=== PATIENT | female | born 1940 ===

== ENCOUNTER 2017-08-20 15:11 | Inpatient (IN) | payer MEDICARE, MEDICAID ==
--- NOTE | 2017-08-20 16:07 | ED PDOC ---
HPI: Trauma/Fall - HPI Chief Complaint (Provider): Weakness History Per: Patient History/Exam Limitations: language barrier Onset/Duration Of Symptoms: Hrs Injury Occurred (Timing): Hours Ago: (1) Description Of Injury (Context): generalized weakness Severity: Moderate Additional History Per: Family Additional Complaint(s): Ms. Chelsy Noble is a pleasant 76 yo lady with PMHx of HTN, reflux, alzheimer's and history of L knee replacement, presents to the ED with generalized weakness and mild lightheadedness. She lives with her daughter who shares that approximately 1 hour ago, she found her mother on the side of her bed, knees bent. She had urinary incontinence. She was last observed to be ambulatory at 03:00 AM. Pt ambulates with assistance of a walker. Currently, she is alert and able to respond to our questions in ukrainian. Denies: SOB/N/V/ constipation/diarrhea PCP: Dr. Kennedy PMHx: HTN, acid reflux, Alzheimer (dx 1 year); PSHx: L knee replacement; Hysterectomy FamHx: Daughter with DM SocHx: Denies: smoking, etoh, illicit drugs Allergies: Iodinated contrast Medications: Brought in a bag but daughters state that she doesnt take all of them: Diclofenac, omeprazole, baclofen, Acetaminophen, lisinopril-HCTZ, tramadol , clopidogrel, folic acid, cyclobenzabrine, memantine, amitiza - Fall Fall:Prior To Injury: Lost Balance <Bryon Martinez - Last Filed: 08/20/17 17:47> - HPI History/Exam Limitations: no limitations Injury Occurred (Timing): Hours Ago: (3am) Additional Complaint(s): Pt. last found well at 3am. Since then developed weakness all over at some time. No numbness, tingles. No chest pain, dyspnea. No headaches, dizziness. No chest pain. Had some incontinence today. <Pillo Sweet - Last Filed: 08/20/17 17:57> - HPI Time Seen by Provider: 08/20/17 15:31 Chief Complaint (Nursing): Trauma Past Medical History Vital Signs: Last Vital Signs Temp 99.5 F 08/20/17 15:16 Pulse 114 H 08/20/17 15:16 Resp 20 08/20/17 15:16 BP 108/66 08/20/17 15:16 Pulse Ox 100 08/20/17 15:16 - Medical History PMH: Alzheimer's Disease, Arthritis, GERD, HTN, Osteoporosis, Rheumatoid Arthritis - Surgical History Surgical History: Appendectomy Other surgeries: Hysterectomy, L knee replaced - Family History Family History: States: Diabetes (daughter) - Living Arrangements Living Arrangements: With Family - Social History Current smoker - smoking cessation education provided: No Alcohol: None Drugs: Denies <MichelleSlater Last Filed: 08/20/17 17:47> Reviewed: Nursing Documentation, Vital Signs Vital Signs: Last Vital Signs Temp 99.5 F 08/20/17 15:16 Pulse 114 H 08/20/17 15:16 Resp 20 08/20/17 15:16 BP 108/66 08/20/17 15:16 Pulse Ox 100 08/20/17 17:48 <Pillo Sweet Last Filed: 08/20/17 17:57> - Home Medications Home Medications: Ambulatory Orders Medication Instructions Recorded Ibuprofen [Motrin] 600 mg PO TID 7 Days tab 04/22/16 Naproxen 500 mg PO BID #10 tab 12/18/16 Diclofenac Sodium 1 tab PO DAILY 05/14/17 Gabapentin [Neurontin] 1 tab PO DAILY 05/14/17 Naproxen [Naprosyn] 500 mg PO BID PRN #14 tablet 05/14/17 traMADol [Ultram] 50 mg PO BID 05/14/17 - Allergies Allergies/Adverse Reactions: Allergies Allergy/AdvReac Type Severity Reaction Status Date / Time Iodinated Contrast- Oral and Allergy RASH Verified 04/22/16 14:42 IV Dye [Iodinated Contrast Media - IV Dye] iodine AdvReac SWELLING Verified 05/14/17 13:41 Review of Systems Constitutional: Positive for: Weakness Cardiovascular: Negative for: Chest Pain Respiratory: Positive for: Cough. Negative for: Shortness of Breath Gastrointestinal: Negative for: Nausea, Vomiting, Diarrhea, Constipation Musculoskeletal: Positive for: Other (generalized) Neurological: Positive for: Weakness. Negative for: Confusion, Altered Mental Status <Mingo Martinezang Last Filed: 08/20/17 17:47> Constitutional: Positive for: Weakness <Pillo Sweet Last Filed: 08/20/17 17:57> Physical Exam - Reviewed Vital Signs Reviewed: Yes - Physical Exam Appears: Positive for: Uncomfortable Skin: Positive for: Warm, Dry Eye Exam: Positive for: EOMI Respiratory: Positive for: Normal Breath Sounds Gastrointestinal/Abdominal: Positive for: Bowel Sounds, Soft. Negative for: Tenderness Neurologic/Psych: Positive for: Alert <Bryon Martinez - Last Filed: 08/20/17 17:47> - Physical Exam Appears: Positive for: Non-toxic, No Acute Distress Head Exam: Positive for: ATRAUMATIC, NORMAL INSPECTION, NORMOCEPHALIC Skin: Positive for: Normal Color, Warm, DRY Eye Exam: Positive for: EOMI, Normal appearance, PERRL ENT: Positive for: Normal ENT Inspection Cardiovascular/Chest: Positive for: Tachycardia (mild) Respiratory: Positive for: CNT, Normal Breath Sounds Back: Positive for: Normal Inspection. Negative for: L CVA Tenderness, R CVA Tenderness Neurologic/Psych: Positive for: Alert, Oriented. Negative for: Motor/Sensory Deficits <Pillo Sweet - Last Filed: 08/20/17 17:57> - Laboratory Results Result Diagrams: 08/20/17 16:23 08/20/17 16:23 - ECG O2 Sat by Pulse Oximetry: 100 <Bryon Martinez - Last Filed: 08/20/17 17:47> - Laboratory Results Result Diagrams: 08/20/17 16:23 08/20/17 16:23 Interpretation Of Abn Labs: 19.1 wbc; elevated bun/cr - ECG ECG: Positive for: Interpreted By Me, Viewed By Me ECG Rhythm: Positive for: Sinus Rhythm, Nonspecific Changes Pulse Ox Interpretation: Normal - Radiology X-Ray: Read By Radiologist X-Ray Interpretation: No Acute Disease - CT Scan/US head Other Rad Studies (CT/US): Read By Radiologist Other Rad Interpretation: no acute - Progress ED Course And Treament: 1754: Stable. Alert. Spoke with Dr. Taveras. Will admit tele. Will give further orders when pt. reaches floor. Likely uti causing symptoms. Meets sepsis criteria. Lactate normal, not severe sepsis. <Pillo Sweet - Last Filed: 08/20/17 17:57> Disposition Discussed With : Pillo Sweet Comment: Sepsis: UTI; meets criteria: Tachycardia, elevated WBC; Urine dip with leukocytes. Admit to medicine - Disposition Disposition Time: 17:45 <Bryon Martinez - Last Filed: 08/20/17 17:47> - Patient ED Disposition Is Patient to be Admitted: Yes Counseled Patient/Family Regarding: Studies Performed, Diagnosis - Pt Status Changed To: Hospital Disposition Of: Inpatient - Admit Certification Admit to Inpatient:: After my assessment, the patient will require hospitalization for at least two midnights. This is because of the severity of symptoms shown, intensity of services needed, and/or the medical risk in this patient being treated as an outpatient. - POA Present On Arrival: Falls Or Trauma (? at home today) <Pillo Sweet - Last Filed: 08/20/17 17:57> - Clinical Impression Clinical Impression: Sepsis due to urinary tract infection, Renal insufficiency, Dehydration - Disposition Condition: FAIR
[2017-08-20 16:18] LABS: VENOUS BLOOD GAS PCO2 43 mmHg (40-60); VENOUS BLOOD PH 7.35 (7.32-7.43)
[2017-08-20 16:32] LABS: BASO % 0.1 % (0.0-2.0); EOS # 0.1 K/uL (0.0-0.7); EOS % 0.3 % (0.0-4.0); LYMPH # 1.1 K/uL (1.0-4.3); LYMPH % 5.8 % (20.0-40.0); MEAN CELL VOLUME 95.7 fl (81.0-99.0); MEAN CORPUSCULAR HEMOGLOBIN 31.5 pg (27.0-31.0); MEAN CORPUSCULAR HGB CONC 32.9 g/dL (33.0-37.0); MONO % 5.3 % (0.0-10.0); NEUT # 16.9 K/uL (1.8-7.0); NEUT % 88.5 % (50.0-75.0); PLATELET COUNT 210 K/uL (130-400); RED CELL DISTRIBUTION WIDTH 13.9 % (11.5-14.5); WHITE BLOOD COUNT 19.1 K/uL (4.8-10.8)
[2017-08-20] MEDS: Sodium Chloride 0.9% 1,000 ML IV SCH (16:35)
[2017-08-20 16:43] LABS: ALB/GLOB RATIO 1.3 (1.0-2.1); BILIRUBIN,TOTAL 0.9 mg/dl (0.2-1.3); CALCIUM 10.5 mg/dL (8.4-10.2); MAGNESIUM 1.8 MG/DL (1.6-2.3); PHOSPHOROUS 3.1 mg/dl (2.5-4.5); TOTAL PROTEIN 7.5 G/DL (6.3-8.2)
[2017-08-20 16:53] LABS: PARTIAL THROMBOPLASTIN TIME 29.1 Seconds (25.6-37.1)
[2017-08-20 16:54] LABS: TROPONIN I 0.012 ng/mL (0.00-0.120)
--- NOTE | 2017-08-20 16:59 | CT ---
PROCEDURE: CT HEAD WITHOUT CONTRAST. HISTORY: Headache. No antecedent history of trauma provided. COMPARISON: 12/18/2016. TECHNIQUE: Axial computed tomography images were obtained through the head/brain without intravenous contrast. Radiation dose: Total exam DLP = 1007.92 mGy-cm. This CT exam was performed using one or more of the following dose reduction techniques: Automated exposure control, adjustment of the mA and/or kV according to patient size, and/or use of iterative reconstruction technique. FINDINGS: HEMORRHAGE: No intracranial hemorrhage. BRAIN: No mass effect or edema. No atrophy or chronic microvascular ischemic changes. VENTRICLES: Unremarkable. No hydrocephalus. CALVARIUM: Unremarkable. PARANASAL SINUSES: Unremarkable as visualized. No significant inflammatory changes. MASTOID AIR CELLS: Unremarkable as visualized. No inflammatory changes. OTHER FINDINGS: None. IMPRESSION: No acute intracranial abnormalities. No significant findings to account for the clinical presentation. No significant interval change compared to the prior examination(s).
--- NOTE | 2017-08-20 17:06 | RAD ---
HISTORY: Sepsis Patient COMPARISON: 12/18/2016 FINDINGS: LUNGS: No active pulmonary disease. PLEURA: No significant pleural effusion identified, no pneumothorax apparent. CARDIOVASCULAR: No radiographic findings to suggest acute or significant cardiovascular disease. OSSEOUS STRUCTURES: No significant abnormalities. VISUALIZED UPPER ABDOMEN: Normal. OTHER FINDINGS: None. IMPRESSION: No active disease. No significant interval change compared to the prior examination(s). Please note: No preliminary interpretation of this examination rendered by emergency department personnel (Physician and/or PA declined to provide preliminary report of their findings/ observations).
[2017-08-20] MEDS ORDERED: Ciprofloxacin 400mg/200ml D5W 400 MG/200 ML BAG IV STA (17:42)
[2017-08-20 18:17] LABS: RBC URINE 9 /hpf (0-3); URINE BILIRUBIN NEGATIVE (NEGATIVE); URINE BLOOD SMALL (NEGATIVE); URINE COLOR YELLOW (YELLOW); URINE GLUCOSE (UA) NEG (Normal); URINE KETONE NEGATIVE (NEGATIVE); URINE LEUKOCYTE ESTERASE NEG Leu/uL (Negative); URINE PROTEIN NEGATIVE (NEGATIVE); URINE UROBILINOGEN 0.2-1.0 mg/dL (0.2-1.0); WBC URINE 1 /hpf (0-5)
[2017-08-20 18:23] LABS: EOSINOPHIL 2 % (0-7); NEUTROPHIL 84 % (42-75); TOTAL CELLS COUNTED 100
[2017-08-20 18:27] LABS: URINE BACTERIA OCC (<OCC)
[2017-08-20] MEDS ORDERED: Ciprofloxacin 400mg/200ml D5W 400 MG/200 ML BAG IVPB ONE (19:10)
[2017-08-20] MEDS ORDERED: Acetaminophen-Codeine 300/30 mg Tab PO PRN (22:19)
[2017-08-20] MEDS: Dextrose 5%/0.9% NS 1,000 ML IV SCH (22:40)
[2017-08-21] MEDS ORDERED: ALENDRONATE 70 MG TAB PO SCH (07:30)
--- NOTE | 2017-08-21 11:19 | CARD ---
APPROVED REPORT EKG Measurement Heart [id number] <Conclusion> Sinus tachycardia with premature atrial complexes Nonspecific T wave abnormality Abnormal ECG
[2017-08-21] MEDS: Multivitamin With Minerals Tab PO SCH (11:25)
[2017-08-21] MEDS: Dextrose 5%/0.9% NS 1,000 ML IV SCH (11:27)
[2017-08-21] MEDS: Pantoprazole 40 mg EC Tab PO SCH (11:29)
[2017-08-21] MEDS: Ciprofloxacin 400mg/200ml D5W 400 MG/200 ML BAG IVPB SCH ×2 (11:31→20:58)
--- NOTE | 2017-08-21 18:38 | CP.PCM.CON ---
History of Present Illness - History of Present Illness History of Present Illness: 76 year old female with a history of alzheimers disease, arthritis, HTN, admitted with weakness and confusion, being treated for UTI, with leukocytosis and anemia. The patient is unaware of having blood problems in the past. She denies abnormal bleeding and bruising. She notes to feeling better since starting antibiotics. She has some right sided soreness in her arms and legs. Her daughter reports her mental status is improved. Past medical history: Alzheimers disease, arthritis, HTN Past surgical history: Knee replacement Family history: Denies hematologic and oncologic problems Social history: Denies tobacco, alcohol, and illicit drug use. Allergies: Oral and IV contrast Review of systems: All remaining review of systems including HEENT, cardiovascular, respiratory, gastrointestinal, genitourinary, musculoskeletal, dermatologic, neurologic, and psychiatric are negative unless mentioned in the HPI. Past Patient History - Past Medical History & Family History Past Medical History?: Yes - Past Social History Smoking Status: Never Smoked - CARDIAC Hx Cardiac Disorders: Yes Hx Hypertension: Yes - PULMONARY Hx Respiratory Disorders: No - NEUROLOGICAL Hx Neurological Disorder: Yes Hx Alzheimer's Disease: Yes - HEENT Hx HEENT Problems: No - RENAL Hx Chronic Kidney Disease: No - ENDOCRINE/METABOLIC Hx Endocrine Disorders: No - HEMATOLOGICAL/ONCOLOGICAL Hx Blood Disorders: No - INTEGUMENTARY Hx Dermatological Problems: No - MUSCULOSKELETAL/RHEUMATOLOGICAL Hx Musculoskeletal Disorders: Yes Hx Arthritis: Yes Hx Falls: Yes Hx Osteoporosis: Yes Hx Rheumatoid Arthritis: Yes - GASTROINTESTINAL Hx Gastrointestinal Disorders: No - GENITOURINARY/GYNECOLOGICAL Hx Genitourinary Disorders: No - PSYCHIATRIC Hx Psychophysiologic Disorder: No Hx Substance Use: No - SURGICAL HISTORY Hx Surgeries: Yes Hx Appendectomy: Yes - ANESTHESIA Hx Anesthesia: Yes Has any member of the family had a problem w/ anesthesia?: No Meds Allergies/Adverse Reactions: Allergies Allergy/AdvReac Type Severity Reaction Status Date / Time Iodinated Contrast- Oral and Allergy RASH Verified 04/22/16 14:42 IV Dye [Iodinated Contrast Media - IV Dye] iodine AdvReac SWELLING Verified 05/14/17 13:41 - Medications Medications: Current Medications Acetaminophen/Codeine Phosphate (Tylenol/Codeine 300 Mg/30 Mg) 1 tab PO BID PRN PRN Reason: Pain, severe (8-10) Alendronate Sodium (Fosamax) 70 mg PO QWK NATTY Baclofen (Lioresal) 10 mg PO BID [facility] Last Admin: 08/21/17 18:13 Dose: 10 mg Cholecalciferol (Vitamin D) 1,000 iu PO DAILY [facility] Last Admin: 08/21/17 11:26 Dose: 1,000 iu Clopidogrel Bisulfate (Plavix) 75 mg PO DAILY [facility] Last Admin: 08/21/17 11:25 Dose: 75 mg Dicyclomine HCl (Bentyl) 10 mg PO TID PRN PRN Reason: abdominal cramps/pain Folic Acid (Folic Acid) 1 mg PO DAILY [facility] Last Admin: 08/21/17 11:26 Dose: 1 mg Gabapentin (Neurontin) 300 mg PO TID [facility] Last Admin: 08/21/17 18:12 Dose: 300 mg Home Med (Diclofenac Sodium [Voltaren]) 75 mg PO BID [facility] Home Med (Valacyclovir [Valtrex]) 1 gm PO DAILY [facility] Sodium Chloride (Sodium Chloride 0.9%) 1,000 mls @ 250 mls/hr IV .Q4H [facility] Last Admin: 08/20/17 16:35 Dose: 250 mls/hr Dextrose/Sodium Chloride (Dextrose 5%/0.9% Ns 1000 Ml) 1,000 mls @ 80 mls/hr IV [id number] [facility] Stop: 08/21/17 22:25 Last Admin: 08/21/17 11:27 Dose: 80 mls/hr Ciprofloxacin (Cipro 400mg/200ml Dsw) 400 mg in 200 mls @ 200 mls/hr IVPB Q12 NATTY PRN Reason: Protocol Last Admin: 08/21/17 11:31 Dose: 200 mls/hr Memantine (Namenda) 10 mg PO DAILY [facility] Last Admin: 08/21/17 11:26 Dose: 10 mg Multivitamins/Minerals (Therapeutic-M Tab) 1 tab PO DAILY [facility] Last Admin: 08/21/17 11:25 Dose: 1 tab Pantoprazole Sodium (Protonix Ec Tab) 40 mg PO DAILY [facility] Last Admin: 08/21/17 11:29 Dose: 40 mg Physical Exam - Head Exam Head Exam: ATRAUMATIC - Eye Exam Eye Exam: Normal appearance - ENT Exam ENT Exam: Mucous Membranes Dry - Respiratory Exam Respiratory Exam: NORMAL BREATHING PATTERN - Cardiovascular Exam Cardiovascular Exam: +S1, +S2 - GI/Abdominal Exam GI & Abdominal Exam: Normal Bowel Sounds - Extremities Exam Extremities exam: Positive for: normal inspection - Neurological Exam Neurological exam: Oriented x3 - Psychiatric Exam Psychiatric exam: Normal Affect, Normal Mood - Skin Skin Exam: Warm Results - Vital Signs Recent Vital Signs: Last Vital Signs Temp 98.4 F 08/21/17 15:51 Pulse 71 08/21/17 15:51 Resp 17 08/21/17 15:51 BP 121/86 08/21/17 15:51 Pulse Ox 97 08/21/17 15:51 - Labs Result Diagrams: 08/20/17 16:23 08/20/17 16:23 Labs: Laboratory Results - last 24 hr 08/20/17 15:32 POC Glucose (mg/dL) 159 H Assessment & Plan (1) Leukocytosis Assessment and Plan: likely related to UTI will monitor during antibiotic treatment Status: Acute (2) Anemia Assessment and Plan: mild will check ferritin, retic count, b12, folate, FOBT to further characterize Thank you for this interesting consult. Status: Acute
[2017-08-21] MEDS: Lidocaine 5% Patch TD SCH (20:59)
--- NOTE | 2017-08-22 00:14 | CP.PCM.HP ---
History of Present Illness - History of Present Illness History of Present Illness: This is a 76 y/o female admitted for increasing body weakness and fall at home. She complained of a lot of joint pains after she was found by family member by the bedside. She was noted to have pain and swelling of the right elbow and noted pain on the right hip. Further exam showed UTI and dehydration. Sh ehas a hx of OA multiple sites, HTN and dementia. Past Patient History - Past Medical History & Family History Past Medical History?: Yes - Past Social History Smoking Status: Never Smoked - CARDIAC Hx Cardiac Disorders: Yes Hx Hypertension: Yes - PULMONARY Hx Respiratory Disorders: No - NEUROLOGICAL Hx Neurological Disorder: Yes Hx Alzheimer's Disease: Yes - HEENT Hx HEENT Problems: No - RENAL Hx Chronic Kidney Disease: No - ENDOCRINE/METABOLIC Hx Endocrine Disorders: No - HEMATOLOGICAL/ONCOLOGICAL Hx Blood Disorders: No - INTEGUMENTARY Hx Dermatological Problems: No - MUSCULOSKELETAL/RHEUMATOLOGICAL Hx Musculoskeletal Disorders: Yes Hx Arthritis: Yes Hx Falls: Yes Hx Osteoporosis: Yes Hx Rheumatoid Arthritis: Yes - GASTROINTESTINAL Hx Gastrointestinal Disorders: No - GENITOURINARY/GYNECOLOGICAL Hx Genitourinary Disorders: No - PSYCHIATRIC Hx Psychophysiologic Disorder: No Hx Substance Use: No - SURGICAL HISTORY Hx Surgeries: Yes Hx Appendectomy: Yes - ANESTHESIA Hx Anesthesia: Yes Has any member of the family had a problem w/ anesthesia?: No Meds Home Medications: Home Medication List Medication Instructions Recorded Confirmed Type Ciprofloxacin Lactate 400 mg IV Q12 #10 vial 08/23/17 Rx [Ciprofloxacin] Allergies/Adverse Reactions: Allergies Allergy/AdvReac Type Severity Reaction Status Date / Time Iodinated Contrast- Oral and Allergy RASH Verified 04/22/16 14:42 IV Dye [Iodinated Contrast Media - IV Dye] iodine AdvReac SWELLING Verified 05/14/17 13:41 Results - Vital Signs Recent Vital Signs: Last Vital Signs Temp 98.7 F 08/21/17 20:11 Pulse 88 08/21/17 20:11 Resp 16 08/21/17 20:11 BP 137/73 08/21/17 20:11 Pulse Ox 97 08/21/17 20:11 - Labs Result Diagrams: 08/22/17 06:00 08/22/17 06:00 Labs: Laboratory Results - last 24 hr 08/20/17 15:32 POC Glucose (mg/dL) 159 H
[2017-08-22 07:55] LABS: HEMATOCRIT 29.1 % (34.0-47.0); MEAN CELL VOLUME 96.6 fl (81.0-99.0); MEAN CORPUSCULAR HEMOGLOBIN 31.6 pg (27.0-31.0); MEAN CORPUSCULAR HGB CONC 32.7 g/dL (33.0-37.0); RED CELL DISTRIBUTION WIDTH 13.8 % (11.5-14.5); WHITE BLOOD COUNT 9.3 K/uL (4.8-10.8)
[2017-08-22 07:56] LABS: ALKALINE PHOSPHATASE 62 U/L (38-126); ALT/SGPT 25 U/L (9-52); AST/SGOT 23 U/L (14-36); BILIRUBIN,TOTAL 0.2 mg/dl (0.2-1.3); BLOOD UREA NITROGEN 23 mg/dl (7-17); CALCIUM 9.5 mg/dL (8.4-10.2); CARBON DIOXIDE 25 mmol/L (22-30); CHLORIDE 116 mmol/L (98-107); GFR AFRICAN-AMERICAN 53; GLUCOSE,RANDOM 89 mg/dL (65-105); POTASSIUM 3.9 MMOL/L (3.6-5.0); SODIUM 147 mmol/l (132-148); TOTAL PROTEIN 6.2 G/DL (6.3-8.2)
[2017-08-22] MEDS: Sodium Chloride 0.9% 1,000 ML IV SCH ×4 (09:17→20:46)
[2017-08-22] MEDS: Ciprofloxacin 400mg/200ml D5W 400 MG/200 ML BAG IVPB SCH ×2 (09:17→20:47)
[2017-08-22] MEDS: Lidocaine 5% Patch TD SCH (09:18)
[2017-08-22] MEDS: Pantoprazole 40 mg EC Tab PO SCH (09:20)
[2017-08-22] MEDS: Multivitamin With Minerals Tab PO SCH (09:20)
[2017-08-22 17:35] LABS: FOLATE > 20.0 ng/mL
[2017-08-23] MEDS: Sodium Chloride 0.9% 1,000 ML IV SCH ×5 (00:08→16:50)
[2017-08-23 08:27] VITALS: RESP 20
[2017-08-23] MEDS: Ciprofloxacin 400mg/200ml D5W 400 MG/200 ML BAG IVPB SCH (09:37)
[2017-08-23] MEDS: Lidocaine 5% Patch TD SCH (09:42)
[2017-08-23] MEDS: Pantoprazole 40 mg EC Tab PO SCH (09:44)
[2017-08-23] MEDS: Multivitamin With Minerals Tab PO SCH (09:44)
[2017-08-23 11:45] VITALS: BMI 31.6
--- NOTE | 2017-08-23 14:36 | RAD ---
PROCEDURE: Radiographs of the Right Shoulder HISTORY: Pain. No history of recent/ related trauma provided COMPARISON: No prior. FINDINGS: BONES: Normal. No fracture. JOINTS: Mean Hounsfield unit values in the anatomic area of interest: Moderate. SOFT TISSUES: Normal. OTHER FINDINGS: None. IMPRESSION: No acute findings related to/accounting for the clinical presentation.
--- NOTE | 2017-08-23 14:37 | RAD ---
PROCEDURE: Radiographs of the right elbow. HISTORY: pain COMPARISON: No priorAll. FINDINGS: BONES: No acute fracture. JOINTS: Osteoarthritic changes primarily related to the olecranon and medial epicondylar region. SOFT TISSUES: Focal soft tissue swelling identified adjacent to the olecranon and distal humerus JOINT EFFUSION: None. OTHER FINDINGS: None. IMPRESSION: Soft tissue swelling without acute articular or osseous abnormality.
[2017-08-23 16:00] VITALS: BP 133/84; PULSE 77; TEMP 98.6; O2SAT 99
--- NOTE | 2017-08-24 08:00 | PQF SEPSIS ---
Dr. Taveras sepsis is documented in the ER Physician Documentation Report. After study was diagnosis of sepsis ruled in or out? This form is a permanent part of the medical record Clarification of your documentation is requested to better reflect the severity of illness and intensity of treatment of your patient. Indicators present [] Temp < 96.8 or > 100.4 [] WBC count > 12,000/mm3 or <000/mm3 or 10% immature neutrophils [] Heart Rate > 90 [] Respiratory Rate > 20 [] Fever or hypothermia [] Chills [] Positive blood cultures [] Hypotension [] Metabolic acidosis (Elevated lactate level, anion gap or reduced blood pH) [x] Acute confusion /Altered Mental Status [] Shock [] Other: [] Location in the medical record that reflects the above clinical findings: [] Treatment Provided: [] PHYSICIAN'S RESPONSE Based on your medical judgment of the clinical indicators outlined above, are you treating this patient for a known or suspected: [] Sepsis / Septicemia Please specify organism if known [] [] SIRS (Systemic Inflammatory Response Syndrome) [] Severe Sepsis (Sepsis with Associated Organ Dysfunction) [] Fever of Unknown Origin [] Other, please indicate: [] [] If Unable to Determine, please check the box, sign and date. Present On Admission (POA) Indicator: [] Present at the time of admission [] Not present at the time of admission [] Clinically Undetermined In responding to this query, please exercise your independent professional judgment. The fact that a question is asked does not imply that any particular answer is desired or expected. Thank you for your clarification on this documentation. If you have any questions please call:[ ] * Thank you, [ ]Lesley Munson medical laboratory technicians SIDENY
--- NOTE | 2017-08-27 10:00 | CP.PCM.PN ---
Subjective - Date & Time of Evaluation Date of Evaluation: 08/22/17 Time of Evaluation: 09:35 - Subjective Subjective: Patient complains of a lot of pain on the right elbow and has difficulty with extension of right elbow. Objective - Vital Signs/Intake and Output Vital Signs (last 24 hours): Temp Pulse Resp BP Pulse Ox 98.6 F 77 20 133/84 99 08/23/17 16:00 08/23/17 16:00 08/23/17 16:00 08/23/17 16:00 08/23/17 16:00 - Labs Labs: 08/22/17 06:00 08/22/17 06:00 PT 10.5 Seconds (9.8-13.1) 08/20/17 16:23 INR 0.9 (0.9-1.2) 08/20/17 16:23 APTT 29.1 Seconds (25.6-37.1) 08/20/17 16:23
--- NOTE | 2017-08-27 10:01 | CP.PCM.DIS ---
Provider - Provider Date of Admission: 08/20/17 17:46 Attending physician: Pepe Taveras MD Hospital Course - Lab Results Lab Results: Micro Results 08/20/17 16:30 Blood Blood Culture - Final NO GROWTH AFTER 5 DAYS 08/20/17 16:30 Blood Gram Stain - Final TEST NOT PERFORMED 08/20/17 16:00 Blood Blood Culture - Final NO GROWTH AFTER 5 DAYS 08/20/17 16:00 Blood Gram Stain - Final TEST NOT PERFORMED 08/20/17 17:42 Urine Urine Culture - Final No Growth (<1,000 CFU/ML) 08/20/17 16:47 Throat Group A Strep Throat Culture - Final NO BETA STREP GROUP A ISOLATED. Most Recent Lab Values WBC 9.3 K/uL (4.8-10.8) D 08/22/17 06:00 RBC 3.02 Mil/uL (3.80-5.20) L 08/22/17 06:00 Hgb 9.5 g/dL (12.0-16.0) L 08/22/17 06:00 Hct 29.1 % (34.0-47.0) L 08/22/17 06:00 MCV 96.6 fl (81.0-99.0) 08/22/17 06:00 MCH 31.6 pg (27.0-31.0) H 08/22/17 06:00 MCHC 32.7 g/dL (33.0-37.0) L 08/22/17 06:00 RDW 13.8 % (11.5-14.5) 08/22/17 06:00 Plt Count 162 K/uL (130-400) 08/22/17 06:00 MPV 10.0 fl (7.2-11.7) 08/20/17 16:23 Neut % (Auto) 88.5 % (50.0-75.0) H 08/20/17 16:23 Lymph % (Auto) 5.8 % (20.0-40.0) L 08/20/17 16:23 [place] % (Auto) 5.3 % (0.0-10.0) 08/20/17 16:23 Eos % (Auto) 0.3 % (0.0-4.0) 08/20/17 16:23 Baso % (Auto) 0.1 % (0.0-2.0) 08/20/17 16:23 Neut # 16.9 K/uL (1.8-7.0) H 08/20/17 16:23 Lymph # 1.1 K/uL (1.0-4.3) 08/20/17 16:23 [place] # 1.0 K/uL (0.0-0.8) H 08/20/17 16:23 Eos # 0.1 K/uL (0.0-0.7) 08/20/17 16:23 Baso # 0.0 K/uL (0.0-0.2) 08/20/17 16:23 Neutrophils % (Manual) 84 % (42-75) H 08/20/17 16:23 Band Neutrophils % 2 % (0-2) 08/20/17 16:23 Lymphocytes % (Manual) 7 % (20-50) L 08/20/17 16:23 Monocytes % (Manual) 5 % (0-10) 08/20/17 16:23 Eosinophils % (Manual) 2 % (0-7) 08/20/17 16:23 Platelet Estimate Normal (NORMAL) 08/20/17 16:23 Anisocytosis (manual) Slight 08/20/17 16:23 Retic Count 0.8 % (0.5-1.5) 08/22/17 06:00 PT 10.5 Seconds (9.8-13.1) 08/20/17 16:23 INR 0.9 (0.9-1.2) 08/20/17 16:23 APTT 29.1 Seconds (25.6-37.1) 08/20/17 16:23 pO2 32 mm/Hg (30-55) 08/20/17 16:15 VBG pH 7.35 (7.32-7.43) 08/20/17 16:15 VBG pCO2 43 mmHg (40-60) 08/20/17 16:15 VBG HCO3 22.3 mmol/L 08/20/17 16:15 VBG Total CO2 25.0 mmol/L (22-28) 08/20/17 16:15 VBG O2 Sat (Calc) 69.9 % (40-65) H 08/20/17 16:15 VBG Base Excess -2.0 mmol/L (0.0-2.0) L 08/20/17 16:15 VBG Potassium 4.1 mmol/L (3.6-5.2) 08/20/17 16:15 Sodium 135.0 mmol/L (132-148) 08/20/17 16:15 Chloride 104.0 mmol/L (98-107) 08/20/17 16:15 Glucose 144 mg/dL (65-105) H 08/20/17 16:15 Lactate 1.8 mmol/L (0.7-2.1) 08/20/17 16:15 FiO2 21.0 % 08/20/17 16:15 Sodium 147 mmol/l (132-148) 08/22/17 06:00 Potassium 3.9 MMOL/L (3.6-5.0) 08/22/17 06:00 Chloride 116 mmol/L (98-107) H 08/22/17 06:00 Carbon Dioxide 25 mmol/L (22-30) 08/22/17 06:00 Anion Gap 10 (10-20) 08/22/17 06:00 BUN 23 mg/dl (7-17) H 08/22/17 06:00 Creatinine 1.2 mg/dL (0.7-1.2) 08/22/17 06:00 Est GFR ( Amer) 53 08/22/17 06:00 Est GFR (Non-Af Amer) 44 08/22/17 06:00 POC Glucose (mg/dL) 159 mg/dL (65-110) H 08/20/17 15:32 Random Glucose 89 mg/dL (65-105) 08/22/17 06:00 Calcium 9.5 mg/dL (8.4-10.2) 08/22/17 06:00 Phosphorus 3.1 mg/dl (2.5-4.5) 08/20/17 16:23 Magnesium 1.8 MG/DL (1.6-2.3) 08/20/17 16:23 Ferritin 264.0 ng/Ml (11.1-264.0) 08/22/17 06:00 Total Bilirubin 0.2 mg/dl (0.2-1.3) 08/22/17 06:00 AST 23 U/L (14-36) 08/22/17 06:00 ALT 25 U/L (9-52) 08/22/17 06:00 Alkaline Phosphatase 62 U/L (38-126) 08/22/17 06:00 Troponin I 0.0120 ng/mL (0.00-0.120) 08/20/17 16:23 Total Protein 6.2 G/DL (6.3-8.2) L 08/22/17 06:00 Albumin 3.1 g/dL (3.5-5.0) L D 08/22/17 06:00 Globulin 3.1 gm/dL (2.2-3.9) 08/22/17 06:00 Albumin/Globulin Ratio 1.0 (1.0-2.1) 08/22/17 06:00 Vitamin B12 > 1000 pg/mL (239-931) H 08/22/17 06:00 Folate > 20.0 ng/mL 08/22/17 06:00 Venous Blood Potassium 4.1 mmol/L (3.6-5.2) 08/20/17 16:15 Urine Color Yellow (YELLOW) 08/20/17 17:42 Urine Clarity Slighty-cloudy (Clear) 08/20/17 17:42 Urine pH 6.0 (5.0-8.0) 08/20/17 17:[address] [place] 1.009 (1.003-1.030) 08/20/17 17:42 Urine Protein Negative mg/dL (NEGATIVE) 08/20/17 17:42 Urine Glucose (UA) Neg mg/dL (Normal) 08/20/17 17:42 Urine Ketones Negative mg/dL (NEGATIVE) 08/20/17 17:42 Urine Blood Small (NEGATIVE) 08/20/17 17:42 Urine Nitrate Negative (NEGATIVE) 08/20/17 17:42 Urine Bilirubin Negative (NEGATIVE) 08/20/17 17:42 Urine Urobilinogen 0.2-1.0 mg/dL (0.2-1.0) 08/20/17 17:42 Ur Leukocyte Esterase Neg Yasir/uL (Negative) 08/20/17 17:42 Urine RBC (Auto) 9 /hpf (0-3) H 08/20/17 17:42 Urine Microscopic WBC 1 /hpf (0-5) 08/20/17 17:42 Ur Squamous Epith Cells < 1 /hpf (0-5) 08/20/17 17:42 Urine Bacteria Occ (<OCC) H 08/20/17 17:42 Hyaline Casts 3-5 /hpf (0-2) H 08/20/17 17:42 Influenza Typ A,B (EIA) Negative for flu a/b (NEGATIVE) 08/20/17 16:47 Grp A Beta Strep Ag Negative (NEGATIVE) 08/20/17 16:47 - Hospital Course Hospital Course: This is a 76 y/o female admitted after a fall at home. Discharge Exam - Head Exam Head Exam: ATRAUMATIC Discharge Plan - Discharge Medications Prescriptions: Ciprofloxacin Lactate [Ciprofloxacin] 400 mg IV Q12 #10 vial - Follow Up Plan Condition: FAIR Disposition: TRANSF TO SNF Instructions: Dehydration (DC)
== END 2017-08-23 17:15 | DRG 872 ==
LOC: H.ER 15:11 → H.ERHOLD 17:46 → H.TEL 21:48
PROVIDERS: ADMIT Family Medicine; ATTEND Family Medicine
DX: A41.9 Sepsis, unspecified organism (principal); E86.0 Dehydration; D64.9 Anemia, unspecified; N39.0 Urinary tract infection, site not specified; G30.9 Alzheimer's disease, unspecified; I10 Essential (primary) hypertension; Z91.041 Radiographic dye allergy status; K21.9 Gastro-esophageal reflux disease without esophagitis; M06.9 Rheumatoid arthritis, unspecified; Z96.652 Presence of left artificial knee joint; M19.90 Unspecified osteoarthritis, unspecified site; R32 Unspecified urinary incontinence; M81.0 Age-related osteoporosis without current pathological fracture; R41.0 Disorientation, unspecified

== ENCOUNTER 2017-11-29 16:33 | Observation (INO) | payer MEDICAID, MEDICARE ==
[2017-11-29 16:34] VITALS: BMI 28.4
--- NOTE | 2017-11-29 17:48 | ED PDOC ---
HPI: Headache Time Seen by Provider: 11/29/17 16:50 Chief Complaint (Nursing): Headache Additional Complaint(s): 77 yo female accompanied by her daughter, with PMHx of HTN, Alzheimer disease, and history of L knee replacement, presents to the ED with w/ c/o posterior headache that radiates to neck about 3 hours ago associated with one episode of vomiting, B/L upper extremity numbness and weakness. Reports she has generalized weakness for last few days. States she had URI symptoms for last few days which resolved. Denies any current headache. Denies dizziness, blurry vision, chest pain, dyspnea, dysuria, fever or chills. PCP: Dr. Kennedy PMHx: HTN, Alzheimer, GERD PSHx: L knee replacement; Hysterectomy FamHx: Daughter with DM SocHx: Denies: smoking, etoh, illicit drugs Allergies: Iodinated contrast Medications: unable to recall. Past Medical History Vital Signs: Last Vital Signs Temp 97.0 F L 11/29/17 16:40 Pulse 83 11/29/17 16:40 Resp 20 11/29/17 16:40 BP 133/88 11/29/17 16:40 Pulse Ox 99 11/29/17 16:40 - Medical History PMH: Alzheimer's Disease, Arthritis, GERD, HTN, Osteoporosis, Rheumatoid Arthritis Denies: Chronic Kidney Disease - Surgical History Surgical History: Appendectomy Other surgeries: Right knee surgery - Family History Family History: States: Unknown Family Hx, Diabetes (daughter) - Social History Current smoker - smoking cessation education provided: No Alcohol: None Drugs: Denies - Home Medications Home Medications: Ambulatory Orders Medication Instructions Recorded Acetaminophen with Codeine 1 tab PO BID PRN 08/20/17 [Tylenol with Codeine #3 Tablet] Alendronate [Fosamax] 70 mg PO QWK 08/20/17 Baclofen [Lioresal] 10 mg PO BID 08/20/17 Cholecalciferol [Vitamin D 1000 IU] 1,000 unit PO DAILY 08/20/17 Clopidogrel [Plavix] 75 mg PO DAILY 08/20/17 Dicyclomine [Bentyl] 10 mg PO TID PRN 08/20/17 Enalapril Maleate [Vasotec] 20 mg PO DAILY 08/20/17 Folic Acid 1 mg PO DAILY 08/20/17 Gabapentin [Neurontin] 300 mg PO TID 08/20/17 Lubiprostone [Amitiza] 24 mcg PO DAILY 08/20/17 Memantine [Namenda] 10 mg PO DAILY 08/20/17 Multivitamin [Multi-Vitamin Daily] 1 tab PO DAILY 08/20/17 Omeprazole 20 mg PO DAILY 08/20/17 hydroCHLOROthiazide [Hydrodiuril] 25 mg PO DAILY 08/20/17 Diclofenac Sodium [Voltaren] 1 unit TD TID 08/29/17 - Allergies Allergies/Adverse Reactions: Allergies Allergy/AdvReac Type Severity Reaction Status Date / Time Iodinated Contrast- Oral and Allergy RASH Verified 04/22/16 14:42 IV Dye [Iodinated Contrast Media - IV Dye] iodine AdvReac SWELLING Verified 05/14/17 13:41 Review of Systems Constitutional: Positive for: Weakness. Negative for: Fever, Chills Eyes: Negative for: Vision Change ENT: Negative for: Ear Pain Cardiovascular: Negative for: Chest Pain, Palpitations Respiratory: Negative for: Cough, Shortness of Breath Gastrointestinal: Negative for: Nausea, Abdominal Pain Genitourinary Female: Negative for: Dysuria Musculoskeletal: Positive for: Neck Pain Skin: Negative for: Rash Neurological: Negative for: Dizziness Physical Exam - Physical Exam Appears: Positive for: Non-toxic, Uncomfortable (when moves her extermities due to pain) Head Exam: Positive for: ATRAUMATIC (No scalp tenderness) Eye Exam: Positive for: EOMI, PERRL ENT: Positive for: TM Is/Are (impacted cerumen on left ear) Neck: Positive for: Pain On Movement Of Neck Cardiovascular/Chest: Positive for: Regular Rate, Rhythm (extra heart beat) Respiratory: Positive for: Normal Breath Sounds. Negative for: Crackles, Wheezing Gastrointestinal/Abdominal: Positive for: Normal Exam, Bowel Sounds, Soft. Negative for: Tenderness Neurologic/Psych: Positive for: Alert, psychological examiner II-XII, Oriented, Other (Generalized upper and lower extremity weakness. No sensory deficit.). Negative for: Aphasia , Facial Droop - Laboratory Results Result Diagrams: 11/30/17 05:30 11/30/17 05:30 - ECG ECG: Positive for: Interpreted By Me ECG Rhythm: Positive for: Atrial Fibrillation O2 Sat by Pulse Oximetry: 99 - Progress ED Course And Treament: Assessment: 77 yo female pmhx Alzheimer disease, HTN, DJD, OA presents to ED w/ c/o headache , B/L upper extremity numbness with neck pain and generalized weakness. Plan: EKG HEAD CT W/O CONTRAST NECK CT W/O CONTRAST TROPONIN I CBC CMP MG PHOS URIC ACID ESR TYPE AND SCREEN PT/INR CXR BLOOD CX URINE CX UA RAPID INFLUENZA TEST ACETAMINOPHEN 1 GM Case d/w ED attending Dr. Boo Re-evaluation at 7:20 pm Pt's GFR is 24 and creatinine clearance is 2.4 ( previously on 08/2017 it was 1.2. Pt will be admitted to inpatient service for ARF. CT of head and neck report is pending. Case d/w ED attending Dr. Boo Disposition - Clinical Impression Clinical Impression: GENIA (acute kidney injury), Weakness generalized - Patient ED Disposition Is Patient to be Admitted: Yes - Disposition Disposition Time: 20:30 (on 11/29/17) Condition: FAIR - Pt Status Changed To: Hospital Disposition Of: Inpatient - Admit Certification Admit to Inpatient:: After my assessment, the patient will require hospitalization for at least two midnights. This is because of the severity of symptoms shown, intensity of services needed, and/or the medical risk in this patient being treated as an outpatient.
[2017-11-29 18:04] LABS: BASO % 0.3 % (0.0-2.0); EOS % 0.3 % (0.0-4.0); LYMPH # 1.7 K/uL (1.0-4.3); LYMPH % 17.2 % (20.0-40.0); MEAN CORPUSCULAR HEMOGLOBIN 31.9 pg (27.0-31.0); MEAN CORPUSCULAR HGB CONC 33.6 g/dL (33.0-37.0); MEAN PLATELET VOLUME 10.3 fl (7.2-11.7); MONO # 0.8 K/uL (0.0-0.8); MONO % 7.6 % (0.0-10.0); NEUT # 7.4 K/uL (1.8-7.0); NEUT % 74.6 % (50.0-75.0); NRBC % 0.1 % (0.0-0.0); RBC 3.43 Mil/uL (3.80-5.20); RED CELL DISTRIBUTION WIDTH 14.7 % (11.5-14.5); WHITE BLOOD COUNT 9.9 K/uL (4.8-10.8)
[2017-11-29 18:12] LABS: ALBUMIN 3.5 g/dL (3.5-5.0); ALT/SGPT 43 U/L (9-52); AST/SGOT 39 U/L (14-36); BLOOD UREA NITROGEN 64 mg/dl (7-17); CALCIUM 9.2 mg/dL (8.4-10.2); GFR AFRICAN-AMERICAN 24; GFR NON-AFRICAN AMERICAN 20; MAGNESIUM 2.2 MG/DL (1.6-2.3); URIC ACID 7.9 mg/Dl (2.2-7.5)
[2017-11-29 18:14] LABS: INR 0.9 (0.9-1.2); PARTIAL THROMBOPLASTIN TIME 30.3 Seconds (25.6-37.1); PROTHROMBIN TIME 10.4 Seconds (9.8-13.1)
[2017-11-29] MEDS ORDERED: Sodium Chloride 0.9% 1,000 ML IV SCH (20:00)
--- NOTE | 2017-11-29 20:05 | CP.PCM.HP ---
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 Daughter states patient had 'influenza' about 2 weeks ago, but recovered from that. Saw her PCP at that time and did not have the current symptoms. Patient currently with no f/ c. No new rashes. No CP or SOB. No dysuria, no blood in urine. Of note, patient has been taking NSAIDs for pain, as well as HCTZ and ACEi per family. Family does mention a dx of SLE at some time in the past that was later changed. PCP: Margarita Kennedy ([facility]) MHx: HTN, Rh arthritis, Alzheimer's dementia, GERD SHx: L knee rep, hysterectomy, appx, bladder Allergies: CT contrast dye Medications: as per med rec, but may not be fully correct Family Hx: DM in family Social Hx: Lives with family, no tobacco or EtOH Surrogate: Daughter, info on chart Present on Admission - Present on Admission Any Indicators Present on Admission: No Past Patient History - Past Medical History & Family History Past Medical History?: Yes - Past Social History Alcohol: None Drugs: Denies - CARDIAC Hx Hypertension: Yes - PULMONARY Hx Respiratory Disorders: No - NEUROLOGICAL Hx Alzheimer's Disease: Yes - HEENT Hx HEENT Problems: No - RENAL Hx Chronic Kidney Disease: No - ENDOCRINE/METABOLIC Hx Endocrine Disorders: No - HEMATOLOGICAL/ONCOLOGICAL Hx Blood Disorders: No - INTEGUMENTARY Hx Dermatological Problems: No - MUSCULOSKELETAL/RHEUMATOLOGICAL Hx Arthritis: Yes Hx Osteoporosis: Yes Hx Rheumatoid Arthritis: Yes - GASTROINTESTINAL Hx Gastrointestinal Disorders: No - GENITOURINARY/GYNECOLOGICAL Hx Genitourinary Disorders: No - PSYCHIATRIC Hx Psychophysiologic Disorder: No Hx Substance Use: No - SURGICAL HISTORY Hx Appendectomy: Yes - ANESTHESIA Hx Anesthesia: Yes Meds Allergies/Adverse Reactions: Allergies Allergy/AdvReac Type Severity Reaction Status Date / Time Iodinated Contrast- Oral and Allergy RASH Verified 04/22/16 14:42 IV Dye [Iodinated Contrast Media - IV Dye] iodine AdvReac SWELLING Verified 05/14/17 13:41 Physical Exam - Constitutional Appears: No Acute Distress, Confused - Head Exam Head Exam: ATRAUMATIC, NORMOCEPHALIC - Eye Exam Eye Exam: EOMI, PERRL - ENT Exam ENT Exam: Mucous Membranes Dry - Neck Exam Neck exam: Positive for: Full Rom - Respiratory Exam Respiratory Exam: Clear to Auscultation Bilateral, NORMAL BREATHING PATTERN - Cardiovascular Exam Cardiovascular Exam: REGULAR RHYTHM, +S1, +S2 - GI/Abdominal Exam GI & Abdominal Exam: Normal Bowel Sounds, Soft - Extremities Exam Extremities exam: Positive for: full ROM Additional comments: trace pedal edema; some swelling in joints, but no redness or warmth; minimum tenderness - Neurological Exam Additional comments: awake but confused - Skin Skin Exam: Dry, Warm Results - Vital Signs Recent Vital Signs: Last Vital Signs Temp 97.0 F L 11/29/17 16:40 Pulse 83 11/29/17 16:40 Resp 20 11/29/17 16:40 BP 133/88 11/29/17 16:40 Pulse Ox 99 11/29/17 19:31 - Labs Result Diagrams: 11/29/17 17:56 11/29/17 17:56 Labs: Laboratory Results - last 24 hr 11/29/17 11/29/17 11/29/17 17:53 17:56 17:56 WBC 9.9 RBC 3.43 L Hgb 11.0 L Hct 32.6 L MCV 95.0 MCH 31.9 H MCHC 33.6 RDW 14.7 H Plt Count 132 MPV 10.3 Neut % (Auto) 74.6 Lymph % (Auto) 17.2 L Barry % (Auto) 7.6 Eos % (Auto) 0.3 Baso % (Auto) 0.3 Neut # (Auto) 7.4 H Lymph # (Auto) 1.7 Barry # (Auto) 0.8 Eos # (Auto) 0.0 Baso # (Auto) 0.0 ESR 62 H PT INR APTT Sodium 133 Potassium 4.6 Chloride 97 L Carbon Dioxide 23 Anion Gap 18 BUN 64 H Creatinine 2.4 H Est GFR ( Amer) 24 Est GFR (Non-Af Amer) 20 Random Glucose 117 H Uric Acid 7.9 H Calcium 9.2 Phosphorus 3.6 Magnesium 2.2 Total Bilirubin 0.4 AST 39 H D ALT 43 Alkaline Phosphatase 119 Troponin I < 0.0120 Total Protein 6.9 Albumin 3.5 Globulin 3.4 Albumin/Globulin Ratio 1.0 Influenza Typ A,B (EIA) Blood Type A POSITIVE Antibody Screen Negative BBK History Checked No verified bt 11/29/17 11/29/17 17:56 17:56 WBC RBC Hgb Hct MCV MCH MCHC RDW Plt Count MPV Neut % (Auto) Lymph % (Auto) [place] % (Auto) Eos % (Auto) Baso % (Auto) Neut # (Auto) Lymph # (Auto) [place] # (Auto) Eos # (Auto) Baso # (Auto) ESR PT 10.4 INR 0.9 APTT 30.3 Sodium Potassium Chloride Carbon Dioxide Anion Gap BUN Creatinine Est GFR ( Amer) Est GFR (Non-Af Amer) Random Glucose Uric Acid Calcium Phosphorus Magnesium Total Bilirubin AST ALT Alkaline Phosphatase Troponin I Total Protein Albumin Globulin Albumin/Globulin Ratio Influenza Typ A,B (EIA) Negative for flu a/b Blood Type Antibody Screen BBK History Checked - Imaging and Cardiology Chest x-ray Status: Image reviewed by me (no acute findings) CT scan - head Status: Report reviewed by me (No acute findings per prelim report) Assessment & Plan (1) GENIA (acute kidney injury) Assessment and Plan: 77 y/o female presenting with generalized weakness and GENIA. 1) Gen weakness, n/v, vol dep GENIA -- GENIA may be due to vol dep in setting of NSAID/HCTZ/ACEi but need to r/o rheum cause -Check LES, C3, C4 -Check CK -Check UA, lytes, Cr -IVF -- 1 L -Hold nephrotoxic medications -Renal consult in AM 2) HTN -- hold BP medications for now that are nephrotoxic, reassess in AM 3) DVT PPx -- SQ Heparin Status: Acute (2) Rheumatoid arthritis Status: Acute (3) Weakness generalized Status: Acute (4) Joint pain Status: Acute (5) Dehydration Status: Acute (6) DVT prophylaxis Status: Acute
--- NOTE | 2017-11-29 20:37 | CT ---
EXAM: CT Cervical Spine Without Intravenous Contrast EXAM DATE/TIME: 11/29/2017 5:32 PM CLINICAL HISTORY: 77 years old, female; Pain; Neck pain; Additional info: Severe neck pain arthritis TECHNIQUE: Axial computed tomography images of the cervical spine without intravenous contrast. All CT scans at this facility use one or more dose reduction techniques, viz.: automated exposure control; ma/kV adjustment per patient size (including targeted exams where dose is matched to indication; i.e. head); or iterative reconstruction technique. Coronal and sagittal reformatted images were created and reviewed. COMPARISON: No relevant prior studies available. FINDINGS: VERTEBRAE: Partial fusion of the C4 and C5 vertebra. Mild to moderate multilevel facet joint degenerative changes. No acute cervical spine fractures visualized. No significant vertebral subluxation seen on the sagittal reformatted images. No evidence of acute facet dislocation. DISCS/SPINAL CANAL/NEURAL FORAMINA: Smooth narrowing of the neural foramina bilaterally at C4-5. Marked, multilevel degenerative disc disease, involving the C3-4, C5-6 and C6-7 levels. SOFT TISSUES: No acute abnormality of the visualized soft tissues is seen. LUNG APICES: No pneumothorax seen. IMPRESSION: - No acute cervical spine fractures identified. - Smooth widening of the neural foramina bilaterally at C4-5. This finding is of uncertain etiology, however, recommend nonemergent followup MRI to exclude underlying chronic lesions, such as bilateral neurogenic tumors (schwannomas or neurofibromas). - See above for remaining findings.
--- NOTE | 2017-11-29 20:49 | CT ---
EXAM: CT Head Without Intravenous Contrast EXAM DATE/TIME: 11/29/2017 5:33 PM CLINICAL HISTORY: 77 years old, female; Pain; Headache; Headache not specified; Additional info: Severe headache HTN TECHNIQUE: Axial computed tomography images of the head/brain without intravenous contrast. All CT scans at this facility use one or more dose reduction techniques, viz.: automated exposure control; ma/kV adjustment per patient size (including targeted exams where dose is matched to indication; i.e. head); or iterative reconstruction technique. Coronal and sagittal reformatted images were created and reviewed. COMPARISON: Prior head CT of 2017-08-20 16:11 FINDINGS: BRAIN: Physiologic basal ganglia calcification. No significant acute abnormality identified. No acute hemorrhage seen within the brain. No acute extra-axial fluid collections visualized. No evidence of significant mass effect within the brain. VENTRICLES: No evidence of significant hydrocephalus. BONES/JOINTS: No acute fractures or other acute bony abnormality noted. SOFT TISSUES: No acute abnormality of the visualized soft tissues is seen. VASCULATURE: Atherosclerotic calcification. SINUSES: Visualized paranasal sinuses appear clear. MASTOID AIR CELLS: Mastoid air cells appear clear. IMPRESSION: - No acute findings seen within the brain. - See above for remaining findings.
[2017-11-29] MEDS: Acetaminophen-Codeine 300/30 mg Tab PO PRN (21:44)
[2017-11-30 04:28] LABS: URINE BACTERIA RARE (<OCC); URINE BILIRUBIN NEGATIVE (NEGATIVE); URINE BLOOD MODERATE (NEGATIVE); URINE CLARITY CLEAR (Clear); URINE COLOR STRAW (YELLOW); URINE GLUCOSE (UA) NEG (Normal); URINE LEUKOCYTE ESTERASE NEG Leu/uL (Negative); URINE NITRATE NEGATIVE (NEGATIVE); URINE PROTEIN NEGATIVE (NEGATIVE); URINE UROBILINOGEN 0.2-1.0 mg/dL (0.2-1.0)
[2017-11-30 06:18] LABS: HEMOGLOBIN 10.9 g/dL (12.0-16.0); MEAN CORPUSCULAR HEMOGLOBIN 31.9 pg (27.0-31.0); MEAN CORPUSCULAR HGB CONC 33.9 g/dL (33.0-37.0); RBC 3.43 Mil/uL (3.80-5.20); RED CELL DISTRIBUTION WIDTH 15.2 % (11.5-14.5)
[2017-11-30 06:32] LABS: WHITE BLOOD COUNT 7.5 K/uL (4.8-10.8)
[2017-11-30 06:43] LABS: ALBUMIN 3.3 g/dL (3.5-5.0); CALCIUM 9.2 mg/dL (8.4-10.2)
[2017-11-30] MEDS ORDERED: Influenza Vaccine 18yr & older 0.5 ML/45 MCG SYR IM ONE (09:00)
[2017-11-30] MEDS ORDERED: Pneumococcal 23-Valent Vaccine IM ONE (09:00)
--- NOTE | 2017-11-30 09:07 | RAD ---
HISTORY: weakness COMPARISON: Chest radiograph dated 08/20/2017. FINDINGS: LUNGS: No active pulmonary disease. PLEURA: No significant pleural effusion identified, no pneumothorax apparent. CARDIOVASCULAR: Atherosclerotic aortic calcifications. Cardiomediastinal silhouette within. OSSEOUS STRUCTURES: Normal limits unchanged. VISUALIZED UPPER ABDOMEN: Normal. OTHER FINDINGS: None. IMPRESSION: No active disease.
--- NOTE | 2017-11-30 10:04 | CARD ---
APPROVED REPORT EKG Measurement Heart [id number] <Conclusion> Atrial fibrillation Abnormal ECG
[2017-11-30] MEDS: Multivitamin With Minerals Tab PO SCH (10:07)
--- NOTE | 2017-11-30 12:58 | CP.PCM.CON ---
History of Present Illness - History of Present Illness History of Present Illness: This patient is 77 years of age female I was called to see for consultation because of abnormal kidney function. 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 Daughter states patient had 'influenza' about 2 weeks ago, but recovered from that. Saw her PCP at that time and did not have the current symptoms. Patient currently with no f/c. No new rashes. No CP or SOB. No dysuria, no blood in urine. Of note , patient has been taking NSAIDs for pain, as well as HCTZ and ACEi per family. Family does mention a dx of SLE at some time in the past that was later changed. PCP: Margarita Kennedy ([employer]) MHx: HTN, Rh arthritis, Alzheimer's dementia, GERD SHx: L knee rep, hysterectomy, appx, bladder Allergies: CT contrast dye Medications: as per med rec, but may not be fully correct Family Hx: DM in family Social Hx: Lives with family, no tobacco or EtOH Review of Systems - Constitutional Constitutional: As Per HPI. absent: Chills, Excessive Sweating, Headache - EENT Eyes: absent: Exophthalmos Nose/Mouth/Throat: absent: Nasal Congestion, Post Nasal Drip - Cardiovascular Cardiovascular: absent: Acrocyanosis, Chest Pain, Dyspnea, Leg Edema, Leg Ulcers , Palpitations - Respiratory Respiratory: absent: Cough, Dyspnea, Hemoptysis, Wheezing - Gastrointestinal Gastrointestinal: absent: Abdominal Pain, Coffee Ground Emesis, Excessive Flatus , Nausea - Genitourinary Genitourinary: Pyuria. absent: Dysuria, Hematuria - Reproductive: Female Reproductive:Female: As Per HPI - Musculoskeletal Musculoskeletal: Muscle Weakness. absent: Atrophy - Integumentary Integumentary: absent: Acne, Pruritus - Neurological Neurological: absent: Disequilibrium, Dizziness, Numbness, Focal Weakness - Psychiatric Psychiatric: As Per HPI - Endocrine Endocrine: Fatigue - Hematologic/Lymphatic Hematologic: absent: Easy Bleeding Past Patient History - Past Medical History & Family History Past Medical History?: Yes - Past Social History Alcohol: None Drugs: Denies - CARDIAC Hx Hypertension: Yes - PULMONARY Hx Respiratory Disorders: No - NEUROLOGICAL Hx Alzheimer's Disease: Yes - HEENT Hx HEENT Problems: No Hx Cataracts: Yes (sx ou) - RENAL Hx Chronic Kidney Disease: No - ENDOCRINE/METABOLIC Hx Endocrine Disorders: No - HEMATOLOGICAL/ONCOLOGICAL Hx Blood Disorders: No Hx AIDS: No Hx Human Immunodeficiency Virus (HIV): No - INTEGUMENTARY Hx Dermatological Problems: No - MUSCULOSKELETAL/RHEUMATOLOGICAL Hx Arthritis: Yes Hx Osteoporosis: Yes Hx Rheumatoid Arthritis: Yes - GASTROINTESTINAL Hx Gastrointestinal Disorders: No - GENITOURINARY/GYNECOLOGICAL Hx Genitourinary Disorders: No - PSYCHIATRIC Hx Psychophysiologic Disorder: No Hx Substance Use: No - SURGICAL HISTORY Hx Appendectomy: Yes - ANESTHESIA Hx Anesthesia: Yes Hx Anesthesia Reactions: No Hx Malignant Hyperthermia: No Meds Allergies/Adverse Reactions: Allergies Allergy/AdvReac Type Severity Reaction Status Date / Time Iodinated Contrast- Oral and Allergy RASH Verified 04/22/16 14:42 IV Dye [Iodinated Contrast Media - IV Dye] iodine AdvReac SWELLING Verified 05/14/17 13:41 - Medications Medications: Current Medications Acetaminophen (Tylenol 325mg Tab) 650 mg PO Q6 PRN PRN Reason: Pain, Mild (1-3), headache Acetaminophen/Codeine Phosphate (Tylenol/Codeine 300 Mg/30 Mg) 1 tab PO BID PRN PRN Reason: Pain, moderate (4-7) Last Admin: 11/29/17 21:44 Dose: 1 tab Clopidogrel Bisulfate (Plavix) 75 mg PO DAILY [facility] Last Admin: 11/30/17 10:07 Dose: 75 mg Folic Acid (Folic Acid) 1 mg PO DAILY [facility] Last Admin: 11/30/17 10:07 Dose: 1 mg Heparin Sodium (Porcine) (Heparin) 5,000 units SC Q12 NATTY PRN Reason: Protocol Last Admin: 11/30/17 10:06 Dose: 5,000 units Home Med (Lubiprostone [Amitiza]) 24 mcg PO DAILY [facility] Memantine (Namenda) 10 mg PO DAILY [facility] Last Admin: 11/30/17 10:07 Dose: 10 mg Multivitamins/Minerals (Therapeutic-M Tab) 1 tab PO DAILY [facility] Last Admin: 11/30/17 10:07 Dose: 1 tab Ondansetron HCl (Zofran Inj) 4 mg IVP Q6 PRN PRN Reason: Nausea/Vomiting Physical Exam - Constitutional Appears: No Acute Distress - ENT Exam ENT Exam: absent: Mucous Membranes Moist - Neck Exam Neck exam: Negative for: Lymphadenopathy - Respiratory Exam Respiratory Exam: NORMAL BREATHING PATTERN. absent: Chest Wall Tenderness, Rales - Cardiovascular Exam Cardiovascular Exam: REGULAR RHYTHM. absent: Gallop, JVD, Rubs - GI/Abdominal Exam GI & Abdominal Exam: Normal Bowel Sounds. absent: Distended - Rectal Exam Rectal Exam: Deferred - Extremities Exam Extremities exam: Negative for: calf tenderness - Back Exam Back exam: absent: CVA tenderness (L), CVA tenderness (R) - Neurological Exam Neurological exam: Alert - Psychiatric Exam Psychiatric exam: Normal Affect Results - Vital Signs Recent Vital Signs: Last Vital Signs Temp 97.3 F L 11/30/17 09:00 Pulse 75 11/30/17 09:00 Resp 20 11/30/17 09:00 BP 127/84 11/30/17 09:00 Pulse Ox 99 11/30/17 11:32 - Labs Result Diagrams: 11/30/17 05:30 11/30/17 05:30 Labs: Laboratory Results - last 24 hr 11/29/17 11/29/17 11/29/17 17:53 17:56 17:56 WBC 9.9 RBC 3.43 L Hgb 11.0 L Hct 32.6 L MCV 95.0 MCH 31.9 H MCHC 33.6 RDW 14.7 H Plt Count 132 MPV 10.3 Neut % (Auto) 74.6 Lymph % (Auto) 17.2 L Hendry % (Auto) 7.6 Eos % (Auto) 0.3 Baso % (Auto) 0.3 Neut # (Auto) 7.4 H Lymph # (Auto) 1.7 Hendry # (Auto) 0.8 Eos # (Auto) 0.0 Baso # (Auto) 0.0 ESR 62 H PT INR APTT Sodium 133 Potassium 4.6 Chloride 97 L Carbon Dioxide 23 Anion Gap 18 BUN 64 H Creatinine 2.4 H Est GFR ( Amer) 24 Est GFR (Non-Af Amer) 20 Random Glucose 117 H Uric Acid 7.9 H Calcium 9.2 Phosphorus 3.6 Magnesium 2.2 Total Bilirubin 0.4 AST 39 H D ALT 43 Alkaline Phosphatase 119 Total Creatine Kinase Troponin I < 0.0120 Total Protein 6.9 Albumin 3.5 Globulin 3.4 Albumin/Globulin Ratio 1.0 Urine Color Urine Clarity Urine pH Ur Specific [place] Urine Protein Urine Glucose (UA) Urine Ketones Urine Blood Urine Nitrate Urine Bilirubin Urine Urobilinogen Ur Leukocyte Esterase Urine RBC (Auto) Urine Microscopic WBC Urine Bacteria Ur Random Creatinine Ur Random Sodium Ur Random Potassium Influenza Typ A,B (EIA) Blood Type A POSITIVE Blood Type Confirm Antibody Screen Negative BBK History Checked No verified bt 11/29/17 11/29/17 11/30/17 17:56 17:56 03:53 WBC RBC Hgb Hct MCV MCH MCHC RDW Plt Count MPV Neut % (Auto) Lymph % (Auto) Hend[place] % (Auto) Eos % (Auto) Baso % (Auto) Neut # (Auto) Lymph # (Auto) Hend[place] # (Auto) Eos # (Auto) Baso # (Auto) ESR PT 10.4 INR 0.9 APTT 30.3 Sodium Potassium Chloride Carbon Dioxide Anion Gap BUN Creatinine Est GFR ( Amer) Est GFR (Non-Af Amer) Random Glucose Uric Acid Calcium Phosphorus Magnesium Total Bilirubin AST ALT Alkaline Phosphatase Total Creatine Kinase Troponin I Total Protein Albumin Globulin Albumin/Globulin Ratio Urine Color Straw Urine Clarity Clear Urine pH 6.0 Ur Specific [place] 1.006 Urine Protein Negative Urine Glucose (UA) Neg Urine Ketones Negative Urine Blood Moderate Urine Nitrate Negative Urine Bilirubin Negative Urine Urobilinogen 0.2-1.0 Ur Leukocyte Esterase Neg Urine RBC (Auto) 5 H Urine Microscopic WBC 1 Urine Bacteria Rare Ur Random Creatinine Ur Random Sodium Ur Random Potassium Influenza Typ A,B (EIA) Negative for flu a/b Blood Type Blood Type Confirm Antibody Screen BBK History Checked 11/30/17 11/30/17 11/30/17 03:53 04:06 05:30 WBC 7.5 RBC 3.43 L Hgb 10.9 L Hct 32.2 L MCV 94.0 MCH 31.9 H MCHC 33.9 RDW 15.2 H Plt Count 133 MPV Neut % (Auto) Lymph % (Auto) Hend[place] % (Auto) Eos % (Auto) Baso % (Auto) Neut # (Auto) Lymph # (Auto) Hend[place] # (Auto) Eos # (Auto) Baso # (Auto) ESR PT INR APTT Sodium Potassium Chloride Carbon Dioxide Anion Gap BUN Creatinine Est GFR ( Amer) Est GFR (Non-Af Amer) Random Glucose Uric Acid Calcium Phosphorus Magnesium Total Bilirubin AST ALT Alkaline Phosphatase Total Creatine Kinase Troponin I Total Protein Albumin Globulin Albumin/Globulin Ratio Urine Color Urine Clarity Urine pH Ur Specific [place] Urine Protein Urine Glucose (UA) Urine Ketones Urine Blood Urine Nitrate Urine Bilirubin Urine Urobilinogen Ur Leukocyte Esterase Urine RBC (Auto) Urine Microscopic WBC Urine Bacteria Ur Random Creatinine 27.7 Ur Random Sodium 36 Ur Random Potassium 10.6 Influenza Typ A,B (EIA) Blood Type Blood Type Confirm Antibody Screen BBK History Checked 11/30/17 11/30/17 11/30/17 05:30 07:29 08:00 WBC RBC Hgb Hct MCV MCH MCHC RDW Plt Count MPV Neut % (Auto) Lymph % (Auto) Hend[place] % (Auto) Eos % (Auto) Baso % (Auto) Neut # (Auto) Lymph # (Auto) [place] # (Auto) Eos # (Auto) Baso # (Auto) ESR PT INR APTT Sodium 141 Potassium 4.4 Chloride 104 Carbon Dioxide 26 Anion Gap 15 BUN 54 H Creatinine 1.8 H Est GFR ( Amer) 33 Est GFR (Non-Af Amer) 27 Random Glucose 92 Uric Acid Calcium 9.2 Phosphorus Magnesium Total Bilirubin 0.3 AST 32 ALT 40 Alkaline Phosphatase 110 Total Creatine Kinase 21 L Troponin I Total Protein 6.4 Albumin 3.3 L Globulin 3.2 Albumin/Globulin Ratio 1.0 Urine Color Urine Clarity Urine pH Ur Specific [place] Urine Protein Urine Glucose (UA) Urine Ketones Urine Blood Urine Nitrate Urine Bilirubin Urine Urobilinogen Ur Leukocyte Esterase Urine RBC (Auto) Urine Microscopic WBC Urine Bacteria Ur Random Creatinine Ur Random Sodium Ur Random Potassium Influenza Typ A,B (EIA) Blood Type Blood Type Confirm A POSITIVE Antibody Screen BBK History Checked Assessment & Plan (1) GENIA (acute kidney injury) Assessment and Plan: Most likely acute kidney injury related to multifactorial related to nonsteroidal anti-inflammatory drug in the setting of SALONI inhibitor and diuretics. My recommendation to get in addition to a spot urine for sodium osmolality would get spot urine for eosinophils. Workup for rheumatoid arthritis and lupus because of the questionable history and main time kidney function improving after withholding all the above triggers. Status: Acute (2) Weakness generalized Status: Acute
[2017-11-30 21:13] LABS: COMPLEMENT C4 66.2 mg/dL (14.0-44.0)
--- NOTE | 2017-11-30 21:31 | CP.PCM.PN ---
Subjective - Date & Time of Evaluation Date of Evaluation: 11/30/17 Time of Evaluation: 14:00 - Subjective Subjective: Patient seen and examined bedside.All chart and clinical data reviewed.States that presented to ER because of a severe headache that woke her up radiating from her left ear to right ear. As per patient the headache resolved but she started having generalized muscle aches and pain s, joint pains. States that can not walk , uses walker at home but has gait difficullt and wants to know why Hemodynamically she is stable, afebrile BUN/ Cr improving from 64/2.4 --- 54/1.8 Feeling a little better . Objective - Vital Signs/Intake and Output Vital Signs (last 24 hours): Temp Pulse Resp BP Pulse Ox 98 F 63 20 126/78 99 11/30/17 15:57 11/30/17 15:57 11/30/17 15:57 11/30/17 15:57 11/30/17 15:57 - Medications Medications: Current Medications Acetaminophen (Tylenol 325mg Tab) 650 mg PO Q6 PRN PRN Reason: Pain, Mild (1-3), headache Acetaminophen/Codeine Phosphate (Tylenol/Codeine 300 Mg/30 Mg) 1 tab PO BID PRN PRN Reason: Pain, moderate (4-7) Last Admin: 11/29/17 21:44 Dose: 1 tab Clopidogrel Bisulfate (Plavix) 75 mg PO DAILY [facility] Last Admin: 11/30/17 10:07 Dose: 75 mg Folic Acid (Folic Acid) 1 mg PO DAILY [facility] Last Admin: 11/30/17 10:07 Dose: 1 mg Heparin Sodium (Porcine) (Heparin) 5,000 units SC Q12 NATTY PRN Reason: Protocol Last Admin: 11/30/17 10:06 Dose: 5,000 units Home Med (Lubiprostone [Amitiza]) 24 mcg PO DAILY [facility] Memantine (Namenda) 10 mg PO DAILY [facility] Last Admin: 11/30/17 10:07 Dose: 10 mg Multivitamins/Minerals (Therapeutic-M Tab) 1 tab PO DAILY [facility] Last Admin: 11/30/17 10:07 Dose: 1 tab Ondansetron HCl (Zofran Inj) 4 mg IVP Q6 PRN PRN Reason: Nausea/Vomiting Oxymetazoline HCl (Nasal Decongestant 15 Ml) 1 spr NS Q12 PRN PRN Reason: Nasal congestion - Labs Labs: 11/30/17 05:30 11/30/17 05:30 PT 10.4 Seconds (9.8-13.1) 11/29/17 17:56 INR 0.9 (0.9-1.2) 11/29/17 17:56 APTT 30.3 Seconds (25.6-37.1) 11/29/17 17:56 - Constitutional Appears: Non-toxic, No Acute Distress - Head Exam Head Exam: ATRAUMATIC, NORMOCEPHALIC - Eye Exam Eye Exam: EOMI, Normal appearance, PERRL Pupil Exam: NORMAL ACCOMODATION - ENT Exam ENT Exam: Mucous Membranes Moist, Normal Exam - Neck Exam Neck Exam: Full ROM, Normal Inspection - Respiratory Exam Respiratory Exam: Clear to Ausculation Bilateral, NORMAL BREATHING PATTERN. absent: Rales, Rhonchi, Wheezes - Cardiovascular Exam Cardiovascular Exam: REGULAR RHYTHM, RRR, +S1, +S2. absent: JVD - GI/Abdominal Exam GI & Abdominal Exam: Soft, Normal Bowel Sounds. absent: Distended, Guarding, Tenderness, Rebound - Rectal Exam Rectal Exam: Deferred - Extremities Exam Extremities Exam: Full ROM, Normal Capillary Refill, Normal Inspection. absent : Pedal Edema - Back Exam Back Exam: NORMAL INSPECTION - Neurological Exam Neurological Exam: Alert, Awake, CN II-XII Intact - Psychiatric Exam Psychiatric exam: Flat Affect - Skin Skin Exam: Dry, Normal Color, Warm Assessment and Plan - Assessment and Plan (Free Text) Assessment: 77 y/o female with PMH of HTN, Rheumatoid arthritis, Alzheimer's dementia, presented with sudden onset severe headaches that woke her up from sleep, generalized weakness, joint pains, difficulty with ambulation . As per daughter patient had 'influenza' about 2 weeks ago, but recovered from that.Patient has been taking NSAIDs for pain, as well as HCTZ and ACEi as per family BUN / Cr on admisison found to be 64/2.4 1. GENIA (acute kidney injury) may be due to volume depletion and use of NSAID/HCTZ/ACEi Continue hydration Nephro consulted BUn/ Cr today improved 54/1.8 repeta BMP in AM 2.HTN controlled without meds HCTZ and enalapril on hold due to GENIA 3. Generalized weakness/ gait instability / joint pains PT eval 4. Rheumatoid arthritis pain management 5. Dementia on Namenda 6. Osteoporosis on Alendronate 7. ?IBS on bentyl and amitiza 8. DVT PPx SQ Heparin
[2017-11-30] MEDS: Acetaminophen-Codeine 300/30 mg Tab PO PRN (23:19)
[2017-12-01 06:34] LABS: HEMOGLOBIN 10.7 g/dL (12.0-16.0); MEAN CELL VOLUME 95.8 fl (81.0-99.0); MEAN CORPUSCULAR HEMOGLOBIN 31.2 pg (27.0-31.0); MEAN CORPUSCULAR HGB CONC 32.5 g/dL (33.0-37.0); RBC 3.43 Mil/uL (3.80-5.20); RED CELL DISTRIBUTION WIDTH 14.8 % (11.5-14.5); WHITE BLOOD COUNT 5.6 K/uL (4.8-10.8)
[2017-12-01 06:55] LABS: BLOOD UREA NITROGEN 26 mg/dl (7-17); CALCIUM 9.6 mg/dL (8.4-10.2); GFR AFRICAN-AMERICAN 58; GFR NON-AFRICAN AMERICAN 48
[2017-12-01 08:31] VITALS: RESP 20
[2017-12-01] MEDS: Multivitamin With Minerals Tab PO SCH (09:37)
--- NOTE | 2017-12-01 10:47 | CP.PCM.PN ---
Subjective - Date & Time of Evaluation Date of Evaluation: 12/01/17 Time of Evaluation: 10:45 - Subjective Subjective: Patient is doing much better No nausea no vomiting Appetite is okay Objective - Vital Signs/Intake and Output Vital Signs (last 24 hours): Temp Pulse Resp BP Pulse Ox 98 F 76 20 159/82 H 100 12/01/17 08:30 12/01/17 08:30 12/01/17 08:30 12/01/17 08:30 12/01/17 08:30 - Medications Medications: Current Medications Acetaminophen (Tylenol 325mg Tab) 650 mg PO Q6 PRN PRN Reason: Pain, Mild (1-3), headache Last Admin: 12/01/17 04:27 Dose: 650 mg Acetaminophen/Codeine Phosphate (Tylenol/Codeine 300 Mg/30 Mg) 1 tab PO BID PRN PRN Reason: Pain, moderate (4-7) Last Admin: 11/30/17 23:19 Dose: 1 tab Clopidogrel Bisulfate (Plavix) 75 mg PO DAILY [facility] Last Admin: 12/01/17 09:37 Dose: 75 mg Folic Acid (Folic Acid) 1 mg PO DAILY [facility] Last Admin: 12/01/17 09:37 Dose: 1 mg Heparin Sodium (Porcine) (Heparin) 5,000 units SC Q12 NATTY PRN Reason: Protocol Last Admin: 12/01/17 09:38 Dose: 5,000 units Home Med (Lubiprostone [Amitiza]) 24 mcg PO DAILY [facility] Memantine (Namenda) 10 mg PO DAILY [facility] Last Admin: 12/01/17 09:37 Dose: 10 mg Multivitamins/Minerals (Therapeutic-M Tab) 1 tab PO DAILY [facility] Last Admin: 12/01/17 09:37 Dose: 1 tab Ondansetron HCl (Zofran Inj) 4 mg IVP Q6 PRN PRN Reason: Nausea/Vomiting Oxymetazoline HCl (Nasal Decongestant 15 Ml) 1 spr NS Q12 PRN PRN Reason: Nasal congestion Last Admin: 11/30/17 23:22 Dose: 1 spr - Labs Labs: 12/01/17 05:55 12/01/17 05:55 PT 10.4 Seconds (9.8-13.1) 11/29/17 17:56 INR 0.9 (0.9-1.2) 11/29/17 17:56 APTT 30.3 Seconds (25.6-37.1) 11/29/17 17:56 - Constitutional Appears: No Acute Distress - ENT Exam ENT Exam: Mucous Membranes Moist - Neck Exam Neck Exam: absent: Lymphadenopathy - Respiratory Exam Respiratory Exam: NORMAL BREATHING PATTERN. absent: Chest Wall Tenderness, Rales - Cardiovascular Exam Cardiovascular Exam: absent: Gallop, JVD, Rubs - GI/Abdominal Exam GI & Abdominal Exam: Soft, Normal Bowel Sounds - Extremities Exam Extremities Exam: absent: Calf Tenderness - Back Exam Back Exam: absent: CVA tenderness (L), CVA tenderness (R) - Neurological Exam Neurological Exam: Alert - Psychiatric Exam Psychiatric exam: Normal Affect - Skin Skin Exam: absent: Cyanosis Assessment and Plan (1) GENIA (acute kidney injury) Assessment & Plan: Serum creatinine coming down to normal Patient is recovering from acute kidney injury Workup for arthritis still pending including A NA and compliment Status: Acute (2) Weakness generalized Status: Acute
[2017-12-01 14:57] LABS: IRON 45 ug/dL (37-170)
[2017-12-01 15:06] LABS: % IRON SATURATION 23 % (20-55); TOTAL IRON BINDING CAPACITY 195 ug/dL (250-450)
[2017-12-01 16:12] VITALS: PULSE 78; TEMP 98.6
[2017-12-01] MEDS ORDERED: guaiFENesin-Codeine 100-10mg/5ml Syrup (5 ml) UD PO PRN (17:02)
[2017-12-01] MEDS ORDERED: Benzocaine/Menthol (Cepacol) Lozenge PO PRN (17:02)
--- NOTE | 2017-12-01 18:20 | CP.PCM.DIS ---
Provider - Provider Date of Admission: 11/29/17 19:17 Attending physician: Angelic Rodriguez MD Primary care physician: Dr. Javed Consults: nephrology consult Time Spent in preparation of Discharge (in minutes): 20 Hospital Course - Lab Results Lab Results: Micro Results 11/29/17 17:50 Blood Blood Culture - Preliminary NO GROWTH AFTER 48 HOURS 11/30/17 03:53 Urine Urine Culture - Final Gram Positive Cocci 11/29/17 18:30 Blood Blood Culture - Preliminary NO GROWTH AFTER 24 HOURS Most Recent Lab Values WBC 5.6 K/uL (4.8-10.8) 12/01/17 05:55 RBC 3.43 Mil/uL (3.80-5.20) L 12/01/17 05:55 Hgb 10.7 g/dL (12.0-16.0) L 12/01/17 05:55 Hct 32.9 % (34.0-47.0) L 12/01/17 05:55 MCV 95.8 fl (81.0-99.0) 12/01/17 05:55 MCH 31.2 pg (27.0-31.0) H 12/01/17 05:55 MCHC 32.5 g/dL (33.0-37.0) L 12/01/17 05:55 RDW 14.8 % (11.5-14.5) H 12/01/17 05:55 Plt Count 181 K/uL (130-400) 12/01/17 05:55 MPV 10.3 fl (7.2-11.7) 11/29/17 17:56 Neut % (Auto) 74.6 % (50.0-75.0) 11/29/17 17:56 Lymph % (Auto) 17.2 % (20.0-40.0) L 11/29/17 17:56 [place] % (Auto) 7.6 % (0.0-10.0) 11/29/17 17:56 Eos % (Auto) 0.3 % (0.0-4.0) 11/29/17 17:56 Baso % (Auto) 0.3 % (0.0-2.0) 11/29/17 17:56 Neut # (Auto) 7.4 K/uL (1.8-7.0) H 11/29/17 17:56 Lymph # (Auto) 1.7 K/uL (1.0-4.3) 11/29/17 17:56 [place] # (Auto) 0.8 K/uL (0.0-0.8) 11/29/17 17:56 Eos # (Auto) 0.0 K/uL (0.0-0.7) 11/29/17 17:56 Baso # (Auto) 0.0 K/uL (0.0-0.2) 11/29/17 17:56 ESR 62 mm/hr (0-30) H 11/29/17 17:56 Retic Count 0.8 % (0.5-1.5) 12/01/17 05:55 PT 10.4 Seconds (9.8-13.1) 11/29/17 17:56 INR 0.9 (0.9-1.2) 11/29/17 17:56 APTT 30.3 Seconds (25.6-37.1) 11/29/17 17:56 Sodium 142 mmol/l (132-148) 12/01/17 05:55 Potassium 4.4 MMOL/L (3.6-5.0) 12/01/17 05:55 Chloride 108 mmol/L (98-107) H 12/01/17 05:55 Carbon Dioxide 27 mmol/L (22-30) 12/01/17 05:55 Anion Gap 11 (10-20) 12/01/17 05:55 BUN 26 mg/dl (7-17) H 12/01/17 05:55 Creatinine 1.1 mg/dl (0.7-1.2) 12/01/17 05:55 Est GFR ( Amer) 58 12/01/17 05:55 Est GFR (Non-Af Amer) 48 12/01/17 05:55 Random Glucose 104 mg/dL (65-105) 12/01/17 05:55 Uric Acid 7.9 mg/Dl (2.2-7.5) H 11/29/17 17:56 Calcium 9.6 mg/dL (8.4-10.2) 12/01/17 05:55 Phosphorus 3.6 mg/dl (2.5-4.5) 11/29/17 17:56 Magnesium 2.2 MG/DL (1.6-2.3) 11/29/17 17:56 Iron 45 ug/dL (37-170) 12/01/17 14:45 TIBC 195 ug/dL (250-450) L 12/01/17 14:45 % Saturation 23 % (20-55) 12/01/17 14:45 Ferritin 407.0 ng/Ml (11.1-264.0) H 12/01/17 05:55 Total Bilirubin 0.3 mg/dl (0.2-1.3) 11/30/17 05:30 AST 32 U/L (14-36) 11/30/17 05:30 ALT 40 U/L (9-52) 11/30/17 05:30 Alkaline Phosphatase 110 U/L (38-126) 11/30/17 05:30 Total Creatine Kinase 21 U/L (30-135) L 11/30/17 07:29 Troponin I < 0.0120 ng/mL (0.00-0.120) 11/29/17 17:56 Total Protein 6.4 G/DL (6.3-8.2) 11/30/17 05:30 Albumin 3.3 g/dL (3.5-5.0) L 11/30/17 05:30 Globulin 3.2 gm/dL (2.2-3.9) 11/30/17 05:30 Albumin/Globulin Ratio 1.0 (1.0-2.1) 11/30/17 05:30 Vitamin B12 > 1000 pg/mL (239-931) H 12/01/17 05:55 TSH 3rd Generation 3.94 mIU/ML (0.46-4.68) 12/01/17 05:55 Urine Color Straw (YELLOW) 11/30/17 03:53 Urine Clarity Clear (Clear) 11/30/17 03:53 Urine pH 6.0 (5.0-8.0) 11/30/17 03:53 Ur Specific [place] 1.006 (1.003-1.030) 11/30/17 03:53 Urine Protein Negative mg/dL (NEGATIVE) 11/30/17 03:53 Urine Glucose (UA) Neg mg/dL (Normal) 11/30/17 03:53 Urine Ketones Negative mg/dL (NEGATIVE) 11/30/17 03:53 Urine Blood Moderate (NEGATIVE) 11/30/17 03:53 Urine Nitrate Negative (NEGATIVE) 11/30/17 03:53 Urine Bilirubin Negative (NEGATIVE) 11/30/17 03:53 Urine Urobilinogen 0.2-1.0 mg/dL (0.2-1.0) 11/30/17 03:53 Ur Leukocyte Esterase Neg Yasir/uL (Negative) 11/30/17 03:53 Urine RBC (Auto) 5 /hpf (0-3) H 11/30/17 03:53 Urine Microscopic WBC 1 /hpf (0-5) 11/30/17 03:53 Urine Bacteria Rare (<OCC) 11/30/17 03:53 Ur Random Creatinine 27.7 mg/dL 11/30/17 03:53 Ur Random Sodium 36 meq/L 11/30/17 04:06 Ur Random Potassium 10.6 mmol/L 11/30/17 04:06 Rheum Arthritis Panel Negative (NEGATIVE) 11/30/17 07:20 Complement C3 122.0 mg/dL (88.0-165.0) 11/30/17 05:30 Complement C4 66.2 mg/dL (14.0-44.0) H 11/30/17 05:30 Influenza Typ A,B (EIA) Negative for flu a/b (NEGATIVE) 11/29/17 17:56 Blood Type A POSITIVE 11/29/17 17:53 Blood Type Confirm A POSITIVE 11/30/17 08:00 Antibody Screen Negative 11/29/17 17:53 BBK History Checked No verified bt 11/29/17 17:53 - Hospital Course Hospital Course: 77 y/o female with PMH of HTN, Rheumatoid arthritis, Alzheimer's dementia, presented with sudden onset severe headache that woke her up from sleep, generalized weakness, joint pains, difficulty with ambulation . As per daughter patient had 'influenza' about 2 weeks ago, but recovered from that.Patient has been taking NSAIDs for pain, as well as HCTZ and ACEi as per family CT head and neck showed no acute abnormality. CXR showed no infiltrate.WBC -wnl , afebrile, influenza negative BUN / Cr on admission found to be 64/2.4 .Patient was placed under observation for GENIA and started on IVF. Nephrology was consulted . HCTZ and Enalapril were held. Her kidney function improved and returned to normal PT was consulted and recommended that patient may benefit from PT . patient referred to [facility] and will be dischargged to [facility] in stable conditions Patient is pleasantly demented with no behavioral problems. All results and discharge plan were discussed with patient;s daughter that she lives with. Patient will need to follow up with PMD DR. Javed after discharge 1. GENIA (acute kidney injury) may be due to volume depletion and use of NSAID/HCTZ/ACEi Improved with hydration Nephro consulted 2.HTN HCTZ and enalapril were held due to GENIA Re start Enalapril lower dose 10 mg po Daily insteda of 20 mg PO qd 3. Generalized weakness/ gait instability / joint pains PT eval Tylenol pRN for pain avoid NSAIDs due to GENIA Influenza negative D/c to [facility] for PT 4. Suspected viral illness Started Cepacol for sore throat , Codeine with mucinex for cough Duonebs, nasal decongestant CXR is clear with no infiltrate ,Patient is afebrile with normal WBC count , throat is clear with no exudate, lungs clear, influenza negative Symptomatic relief 5. Rheumatoid arthritis pain management PRN follow up with her reheumatologist 6. Dementia on Namenda no behavioral problems at present informed of geropsychiatry unit and its services in case the patient exhibits behavioral problems 7. Osteoporosis on Alendronate 8. ?IBS on bentyl and amitiza 9. DVT PPx SQ Heparin 10. Anemia probably dilutional Discharge Exam - Head Exam Head Exam: ATRAUMATIC, NORMOCEPHALIC - Eye Exam Eye Exam: EOMI, Normal appearance, PERRL Pupil Exam: NORMAL ACCOMODATION - ENT Exam ENT Exam: Mucous Membranes Moist, Normal Exam, Normal Oropharynx - Neck Exam Neck exam: Full Rom, Normal Inspection Additional comments: no lymphadenopathy - Respiratory Exam Respiratory Exam: Clear to PA & Lateral, NORMAL BREATHING PATTERN. absent: Rales, Rhonchi, Wheezes - Cardiovascular Exam Cardiovascular Exam: REGULAR RHYTHM, RRR, +S1, +S2. absent: JVD - GI/Abdominal Exam GI & Abdominal Exam: Normal Bowel Sounds, Soft. absent: Distended, Guarding, Rebound, Tenderness - Rectal Exam Rectal Exam: Deferred - Extremities Exam Extremities exam: normal capillary refill, normal inspection, pedal pulses present - Back Exam Back exam: NORMAL INSPECTION - Neurological Exam Neurological exam: Alert, CN II-XII Intact Additional comments: oriented to place , person time pleasantly demented - Psychiatric Exam Psychiatric exam: Normal Affect - Skin Skin Exam: Dry, Normal Color, Warm Discharge Plan - Discharge Medications Prescriptions: Enalapril Maleate [Vasotec] 10 mg PO DAILY #30 tab - Follow Up Plan Condition: FAIR Disposition: TRANSF TO SNF Patient education suggested?: Yes Instructions: Acute Kidney Injury (DC) Referrals: Winter Javed MD [Family Provider] -
[2017-12-01 18:38] LABS: FOLATE > 20.0 ng/mL
[2017-12-01 20:00] VITALS: BP 167/92; O2SAT 82
[2017-12-01] MEDS ORDERED: Albuterol-Ipratrop 3 mg / 0.5 (3 ml) UD INH SCH (20:00)
== END 2017-12-01 20:15 ==
LOC: H.ER 16:33 → H.ERHOLD 19:17 → H.MEDSURG1 21:37
PROVIDERS: ADMIT Internal Medicine; ATTEND Internal Medicine
DX: N17.9 Acute kidney failure, unspecified (principal); K58.9 Irritable bowel syndrome, unspecified; E86.0 Dehydration; F02.80 Dementia in other diseases classified elsewhere, unspecified severity, without behavioral disturbance, psychotic disturbance, mood disturbance, and anxiety; G30.9 Alzheimer's disease, unspecified; I10 Essential (primary) hypertension; K21.9 Gastro-esophageal reflux disease without esophagitis; D64.89 Other specified anemias; M06.9 Rheumatoid arthritis, unspecified; M81.0 Age-related osteoporosis without current pathological fracture; Z23 Encounter for immunization; Z91.041 Radiographic dye allergy status; Z96.652 Presence of left artificial knee joint; Z79.02 Long term (current) use of antithrombotics/antiplatelets; Z79.83 Long term (current) use of bisphosphonates
CPT/HCPCS: 36415; 70450; 71045; 72125; 80048; 80053; 81003; 82436; 82550; 82570; 82607; 82728; 82746; 83540; 83550; 83735; 84100; 84132; 84300; 84443; 84484; 84550; 85025; 85027; 85044; 85610; 85651; 85730; 86038; 86160; 86430; 86850; 86900; 87040; 87086; 87804; 90471; 90732; 93005; 94640; 97162; 99285; G0378; G8978; G8979; J1644; J7040; Q2035

== ENCOUNTER 2018-01-20 21:53 | Emergency (ER) | payer MEDICARE, MEDICAID ==
[2018-01-20 21:53] VITALS: BMI 28.4
[2018-01-20 22:47] VITALS: BP 144/78; PULSE 78; RESP 18; TEMP 97.8; O2SAT 98
--- NOTE | 2018-01-20 23:01 | ED PDOC ---
Lower Extremity Pain/Injury Time Seen by Provider: 01/20/18 22:48 Chief Complaint (Nursing): Lower Extremity Problem/Injury Chief Complaint (Provider): left hip pain History Per: Patient, Family (daughter) Additional Complaint(s): 77-year-old female presents to emergency Department with pain to left hip ongoing for 2 weeks. Patient was recently in a rehabilitation facility and was doing physical therapy exercises which caused muscle strain to left hip. She did not sustain a fall or injury. Gradually over the past week pain has worsened prompting daughter to bring patient to ED today. Patient takes gabapentin and baclofen daily but this has not helped her pain. Patient also has history of chronic left knee pain for several years. Patient uses walker at baseline when ambulating. PMD: Dr. Kennedy Past Medical History Reviewed: Historical Data, Nursing Documentation, Vital Signs Vital Signs: Last Vital Signs Temp 97.8 F 01/20/18 22:43 Pulse 78 01/20/18 22:43 Resp 18 01/20/18 22:43 BP 144/78 01/20/18 22:43 Pulse Ox 98 01/20/18 22:43 - Medical History PMH: Alzheimer's Disease, Arthritis, GERD, HTN, Osteoporosis, Rheumatoid Arthritis - Surgical History Surgical History: Appendectomy - Family History Family History: States: Diabetes (daughter) - Living Arrangements Living Arrangements: With Family - Social History Current smoker - smoking cessation education provided: No Alcohol: None Drugs: Denies - Home Medications Home Medications: Ambulatory Orders Medication Instructions Recorded Acetaminophen with Codeine 1 tab PO BID PRN 08/20/17 [Tylenol with Codeine #3 Tablet] Alendronate [Fosamax] 70 mg PO QWK 08/20/17 Baclofen [Lioresal] 10 mg PO BID 08/20/17 Cholecalciferol [Vitamin D 1000 IU] 1,000 unit PO DAILY 08/20/17 Clopidogrel [Plavix] 75 mg PO DAILY 08/20/17 Dicyclomine [Bentyl] 10 mg PO TID PRN 08/20/17 Folic Acid 1 mg PO DAILY 08/20/17 Gabapentin [Neurontin] 300 mg PO TID 08/20/17 Lubiprostone [Amitiza] 24 mcg PO DAILY 08/20/17 Memantine [Namenda] 10 mg PO DAILY 08/20/17 Multivitamin [Multi-Vitamin Daily] 1 tab PO DAILY 08/20/17 Omeprazole 20 mg PO DAILY 08/20/17 Azelastine HCl 1 drop EACHEYE BID 11/30/17 Acetaminophen [Tylenol 325mg tab] 650 mg PO Q6 PRN tab 12/01/17 Albuterol/Ipratropium [Duoneb 3 3 ml INH RQID neb 12/01/17 mg/0.5 mg (3 ml) UD] Benzocaine/Menthol [Cepacol Sore 1 narendra PO Q3 PRN narendra 12/01/17 Throat] Enalapril Maleate [Vasotec] 10 mg PO DAILY #30 tab 12/01/17 Oxymetazoline HCl [Nasal 1 spr NS Q12 PRN bottle 12/01/17 Decongestant 15 ml] traMADol [Ultram] 50 mg PO TID PRN #15 tab 01/20/18 - Allergies Allergies/Adverse Reactions: Allergies Allergy/AdvReac Type Severity Reaction Status Date / Time Iodinated Contrast- Oral and Allergy RASH Verified 04/22/16 14:42 IV Dye [Iodinated Contrast Media - IV Dye] iodine AdvReac SWELLING Verified 05/14/17 13:41 Wells Criteria for PE - Wells Criteria for Pulmonary Embolism Clinical Signs and Symptoms of DVT: No P.E is #1 Diagnosis, or Equally Likely: No Heart Rate >100: No Immobilization at least 3 days;Surgery previous 4 weeks: No Previous, objectively diagnosed PE or DVT: No Hemoptysis: No Malignancy w/treatment within 6 months, or palliative: No Total Score: 0 Review of Systems ROS Statement: Except As Marked, All Systems Reviewed And Found Negative Constitutional: Negative for: Fever Musculoskeletal: Positive for: Other (left hip pain for 2 weeks) Physical Exam - Reviewed Nursing Documentation Reviewed: Yes Vital Signs Reviewed: Yes - Physical Exam Appears: Positive for: Well, Non-toxic, No Acute Distress Skin: Negative for: Rash Eye Exam: Positive for: Normal appearance Cardiovascular/Chest: Positive for: Regular Rate, Rhythm Respiratory: Positive for: Normal Breath Sounds Gastrointestinal/Abdominal: Positive for: Soft. Negative for: Tenderness, Distended, Guarding Back: Negative for: L CVA Tenderness, R CVA Tenderness Extremity: Positive for: Other (tenderness to left lateral hip with full rom, no warmth or erythema noted to left hip region, normal distal sensation left lower extremity) Neurologic/Psych: Positive for: Alert, Oriented, Gait (steady with walker used at baseline) - ECG O2 Sat by Pulse Oximetry: 98 Pulse Ox Interpretation: Normal - Other Rad Left hip and pelvis x-ray X-Ray: Interpreted by Me, Viewed By Me X-Ray Interpretation: no fx, no dis, mild degenerative changes Medical Decision Making Medical Decision Makin77 year old with left hip pain for 2 weeks Plan: PO tramadol PO tylenol IM toradol X-ray left hip and pelvis Pain improved after meds given. Rx tramadol given. Advised PMD follow up. Disposition - Clinical Impression Clinical Impression: Hip pain - Patient ED Disposition Is Patient to be Admitted: No Counseled Patient/Family Regarding: Studies Performed, Diagnosis, Need For Followup, Rx Given - Disposition Referrals: Garret Kennedy MD [Staff Provider] - Disposition: Routine/Home Disposition Time: 23:27 Condition: STABLE Additional Instructions: TAKE OVER THE COUNTER TYLENOL AND RX MEDS DIRECTED NEEDED FOR PAIN. FOLLOW UP WITH PRIMARY CARE DOCTOR IN 2-3 DAYS. Prescriptions: traMADol [Ultram] 50 mg PO TID PRN #15 tab PRN Reason: Pain, Moderate (4-7) Instructions: Hip Pain
--- NOTE | 2018-01-21 11:42 | RAD ---
PROCEDURE: Left Hip X-ray Radiographs. HISTORY: left hip pain for 2 weeks COMPARISON: None. FINDINGS: BONES: The pelvic ring is intact. There is no acute displaced fracture or bone destruction. JOINTS: There is mild degenerative osteoarthrosis in the hip joints with reduced joint spaces. There is mild osteitis pubis. The sacroiliac joints are normal. SOFT TISSUES: Normal. OTHER FINDINGS: None. IMPRESSION: No acute displaced fracture or dislocation. Mild degenerative osteoarthrosis in the hip joints.
== END 2018-01-21 00:39 | disposition home or self-care (01) ==
LOC: H.ER 21:53
DX: M25.552 Pain in left hip (principal); F02.80 Dementia in other diseases classified elsewhere, unspecified severity, without behavioral disturbance, psychotic disturbance, mood disturbance, and anxiety; I10 Essential (primary) hypertension; M06.9 Rheumatoid arthritis, unspecified
CPT/HCPCS: 73502; 96372; 99282; J1885